=== PATIENT | male | born 1980 | race African-American/Black ===

== ENCOUNTER 2016-11-09 04:15 | Emergency (ER) | payer OTHER ==
[~2016-11-09] VITALS: Ht 185.4 cm; Wt 77.0 kg
[~2016-11-09 04:15] MED LIST: Colace PO; Feosol PO; KEFLEX500 MG PO; Keflex PO; Milk Of Magnesia,MOM PO; NAPROXEN500 MG PO; PREDNISONE20 MG PO; Senokot,Sennagen PO; oxyCODONE PO
[2016-11-09] MEDS ORDERED: ULTRAM50 MG PO (05:51)
[2016-11-09] MEDS ORDERED: ZANAFLEX2 MG PO (05:51)
[2016-11-09 06:18] VITALS: BP 142/90
== END 2016-11-09 06:41 | disposition home or self-care (01) ==
LOC: EME 04:15
DX: S20.219A Contusion of unspecified front wall of thorax, initial encounter (principal); S13.9XXA Sprain of joints and ligaments of unspecified parts of neck, initial encounter; V49.40XA Driver injured in collision with unspecified motor vehicles in traffic accident, initial encounter; F17.200 Nicotine dependence, unspecified, uncomplicated
CPT/HCPCS: 71020; 72040; 93005; 99281; 99284

== ENCOUNTER 2017-07-17 03:56 | Emergency (ER) | payer OTHER ==
[~2017-07-17] VITALS: Ht 185.4 cm; Wt 77.5 kg
[~2017-07-17 03:56] MED LIST changes: +ULTRAM50 MG PO; +ZANAFLEX2 MG PO
[2017-07-17] MEDS ORDERED: FLEXERIL10 MG PO (05:52)
[2017-07-17] MEDS ORDERED: PEN-VEE K,VEET500 MG PO (05:52)
[2017-07-17] MEDS ORDERED: LIDODERM 5% P1 PATCH TD (05:52)
[2017-07-17 06:17] VITALS: BP 148/79
== END 2017-07-17 06:17 | disposition home or self-care (01) ==
LOC: EME 03:56
DX: S76.312A Strain of muscle, fascia and tendon of the posterior muscle group at thigh level, left thigh, initial encounter (principal); K04.7 Periapical abscess without sinus; M54.42 Lumbago with sciatica, left side; F17.200 Nicotine dependence, unspecified, uncomplicated
CPT/HCPCS: 99281; 99283